=== PATIENT | male | born 1980 | race Caucasian/White ===

== ENCOUNTER 2025-07-13 10:36 | Emergency (ER) | payer BC ==
[2025-07-13 12:42] LABS: BASOPHILS ABSOLUTE AUTO 0.04 K/uL (0.00-0.10); BASOPHILS PERCENT AUTO 0.4 % (0.1-1.3); EOSINOPHILS ABSOLUTE AUTO 0.09 K/uL (0.00-0.40); EOSINOPHILS PERCENT AUTO 0.9 % (0.0-5.4); IMMATURE GRAN ABSOLUTE AUTO 0.04 K/uL (0.00-0.23); IMMATURE GRAN PERCENT AUTO 0.4 % (0.0-0.7); LYMPHOCYTES ABSOLUTE AUTO 2.17 K/uL (0.8-3.3); LYMPHOCYTES PERCENT AUTO 21.5 % (11.4-47.7); MONOCYTES ABSOLUTE AUTO 1.05 K/uL (0.20-0.90); MONOCYTES PERCENT AUTO 10.4 % (3.3-12.6); NEUTROPHILS ABSOLUTE AUTO 6.69 K/uL (1.0-7.6); NEUTROPHILS PERCENT AUTO 66.4 % (40.0-78.1); PLATELET COUNT,PLT 257 K/uL (130-375); RED BLOOD CELL COUNT 4.99 M/uL (4.14-5.76); WHITE BLOOD CELL COUNT,WBC 10.1 K/uL (3.2-11.0)
[2025-07-13 13:03] LABS: A/G RATIO 1.4 (1.2-2.2); ALANINE AMINOTRANSFERASE,ALT 62 U/L (12-78); ASPARTATE AMNIOTRANSFERASE,AST 39 U/L (15-37); BILIRUBIN TOTAL 1.2 mg/dL (0.2-1.0); BLOOD UREA NITROGEN,BUN 9 mg/dL (7-18); CARBON DIOXIDE,CO2 29 mmol/L (21-32); CHLORIDE,CL 102 mmol/L (100-108); CREATININE 0.8 mg/dL (0.8-1.3); EST CRCL DRUG DOSING (CG) 130.68 mL/min; ESTIMATED GFR 113 mL/min (>60); GLUCOSE RANDOM 108 mg/dL (74-106); POTASSIUM,K 4.3 mmol/L (3.6-5.2); PROTEIN TOTAL,TP 7.7 g/dL (6.4-8.2); SODIUM,NA 141 mmol/L (140-148)
== END 2025-07-13 13:03 | disposition home or self-care (01) ==
LOC: JP.ED 10:36
DX: R10.31 Right lower quadrant pain (principal); F17.200 Nicotine dependence, unspecified, uncomplicated
CPT/HCPCS: 36415; 80053; 85025; 86140; 99283; 99284